=== PATIENT | female | born 1990 | race American Indian/Alaskan Native ===

== ENCOUNTER 2019-03-27 14:20 | Outpatient (CLI) | payer BC, MEDICAID ==
[2019-03-27 15:23] VITALS: BP 105/61
== END 2019-03-27 16:55 | disposition home or self-care (01) ==
LOC: TRG 14:20
PROVIDERS: ATTEND Obstetrics & Gynecology
DX: O47.02 False labor before 37 completed weeks of gestation, second trimester (principal); Z3A.29 29 weeks gestation of pregnancy
CPT/HCPCS: 59025

== ENCOUNTER 2019-06-10 18:56 | Outpatient (CLI) | payer BC, MEDICAID ==
[2019-06-10 19:51] VITALS: BP 106/64
--- NOTE | 2019-06-10 20:01 | Ultrasound Report ---
Limited OB ultrasound with biophysical profile INDICATION: Decreased movement. COMPARISON: None available. FINDINGS: A single live intrauterine is seen with a heart rate of 143 bpm. The amniotic fluid index m easures 7.3 cm. The biophysical profile is 8/8. IMPRESSION: 1. Amniotic fluid index of 7.3 cm. 2. Biophysical profile of 8/8. Signer Name: Tom Moreira MD Signed: 06/10/2019 7:57 PM Workstation Name: [id number]
== END 2019-06-10 20:00 | disposition home or self-care (01) ==
LOC: TRG 18:56
PROVIDERS: ATTEND Obstetrics & Gynecology
DX: O36.8130 Decreased fetal movements, third trimester, not applicable or unspecified (principal); Z3A.39 39 weeks gestation of pregnancy
CPT/HCPCS: 76815; 76819

== ENCOUNTER 2019-06-16 14:31 | Outpatient (CLI) | payer BC, MEDICAID ==
[2019-06-16 15:06] VITALS: BP 107/66
== END 2019-06-16 16:34 | disposition home or self-care (01) ==
LOC: TRG 14:31
PROVIDERS: ATTEND Obstetrics & Gynecology
DX: O46.8X3 Other antepartum hemorrhage, third trimester (principal); Z3A.40 40 weeks gestation of pregnancy
CPT/HCPCS: 59025

== ENCOUNTER 2020-06-11 14:52 | Outpatient (CLI) | payer BC ==
--- NOTE | 2020-06-11 15:43 | Ultrasound Report ---
EXAMINATION: Left Complete Breast Ultrasound, 06/11/2020 INDICATION: Generalized left breast pain. COMPARISON: None. FINDINGS: Complete sonographic evaluation of all 4 quadrants and retroareolar region was performed. There is no evidence of a cystic or solid mass. No posterior shadowing, distortion or other suspiciou s abnormality is seen. There is mild generalized benign-appearing ductal ectasia in the subareolar re gion. There are 2 benign-appearing lymph nodes in the left axilla, the largest of which measures 7.6 mm short axis. IMPRESSION: No suspicious sonographic abnormality is identified. Follow up recommendation: Unless otherwise clinically indicated, recommend patient return to routine screening mammography at age 39. BI-RADS Category 2: Benign. Signer Name: Blane Wang MD Signed: 06/11/2020 3:38 PM Workstation Name: [id number]
== END 2020-06-11 14:53 | disposition home or self-care (01) ==
LOC: SPVWC 14:52
PROVIDERS: ATTEND Obstetrics & Gynecology
DX: N64.4 Mastodynia (principal)